=== PATIENT | female | born 2000 | race Caucasian/White ===

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

== ENCOUNTER 2021-07-31 17:54 | Emergency (ER) | payer BC, MEDICAID ==
[2021-07-31] MEDS ORDERED: Sodium Chloride 0.9% 1,000 ML IV SCH (19:15)
[2021-07-31 20:13] VITALS: BP 114/75; PULSE 87
== END 2021-07-31 20:32 | disposition home or self-care (01) ==
LOC: JP.ED 17:54
DX: E86.0 Dehydration (principal); F41.9 Anxiety disorder, unspecified; Z88.0 Allergy status to penicillin; Z88.1 Allergy status to other antibiotic agents
CPT/HCPCS: 36415; 80053; 81001; 85025; 99283

== ENCOUNTER 2021-08-18 21:25 | Emergency (ER) | payer BC, MEDICAID ==
[2021-08-18] MEDS ORDERED: LORazepam 1 MG Tab PO ONE (21:40)
[2021-08-18 22:29] VITALS: BP 139/89; PULSE 125
== END 2021-08-18 22:30 | disposition home or self-care (01) ==
LOC: JP.ED 21:25
DX: F41.9 Anxiety disorder, unspecified (principal); E87.6 Hypokalemia; Z88.0 Allergy status to penicillin
CPT/HCPCS: 36415; 80053; 84439; 84443; 85025; 93005; 93010; 99282; 99285-25; A9270-GY

== ENCOUNTER 2021-09-22 14:30 | Emergency (ER) | payer BC, MEDICAID ==
[2021-09-22 14:45] VITALS: BP 118/84; PULSE 78
[2021-09-22] MEDS ORDERED: Cyclobenzaprine 10 MG Tab PO ONE (16:10)
== END 2021-09-22 17:19 | disposition home or self-care (01) ==
LOC: JP.ED 14:30
DX: R20.0 Anesthesia of skin (principal); R20.2 Paresthesia of skin; Z88.0 Allergy status to penicillin; Z88.1 Allergy status to other antibiotic agents
CPT/HCPCS: 72125; 72125-26; 99282; 99284-25; A9270-GY

== ENCOUNTER 2023-03-13 17:49 | Emergency (ER) | payer OTHER, BC ==
[2023-03-13 18:36] VITALS: BP 106/55; PULSE 88
== END 2023-03-13 19:09 | disposition home or self-care (01) ==
LOC: JP.ED 17:49
DX: O9A.213 Injury, poisoning and certain other consequences of external causes complicating pregnancy, third trimester (principal); T78.40XA Allergy, unspecified, initial encounter; Z3A.31 31 weeks gestation of pregnancy; Z88.1 Allergy status to other antibiotic agents; Z88.0 Allergy status to penicillin; Z86.16 Personal history of COVID-19
CPT/HCPCS: 99283

== ENCOUNTER 2024-03-08 07:57 | Day surgery (SDC) | payer OTHER, BC ==
[2024-03-08] MEDS: Sodium Chloride 0.9% 1,000 ML IV SCH (08:37)
[2024-03-08] MEDS ORDERED: Midazolam 1 MG/ML 2 ML SDV ONE (08:52)
[2024-03-08] MEDS ORDERED: Propofol 200 MG/20 ML SDV ONE ×2 (08:53→09:48)
[2024-03-08] MEDS ORDERED: fentaNYL 50 MCG/ML SDV ONE (08:53)
[2024-03-08 11:02] VITALS: BP 114/79; PULSE 84
== END 2024-03-08 11:19 | disposition home or self-care (01) ==
LOC: JP.SDS 07:57
PROVIDERS: ATTEND Surgery
DX: K21.00 Gastro-esophageal reflux disease with esophagitis, without bleeding (principal)
CPT/HCPCS: 00731; 43239; 81025; 88305; J2250; J2704; J3010; J7030